=== PATIENT | female | born 1970 | race Caucasian/White ===

== ENCOUNTER 2021-10-31 14:15 | Outpatient (CLI) | payer OTHER, SELFPAY ==
[2021-10-31 14:38] LABS: Hematocrit 45.4 % (37.0-47.0); Hemoglobin 15.2 g/dL (12.0-15.0); Mean Corpuscular HGB Conc 33.5 g/dl (32-36); Mean Corpuscular Hemoglobin 28.6 pg (26-34); Mean Corpuscular Volume 85.5 fl (80-100); Mean Platelet Volume 9.3 fl (7.4-10.4); Platelet Count Result 274 k/mm3 (150-375); Red Blood Count 5.31 M/mm3 (4.2-5.4); White Blood Count 8.3 K/mm3 (4.5-10.0)
[2021-10-31 14:39] LABS: Appearance Urine Clear (Clear); Bilirubin Urine 1+ (Negative); Blood Urine Negative (Negative); Color Urine Yellow (Yellow); Glucose Urine UA Negative (Negative); Ketones Urine 2+ mg/dL (Negative); Leukocyte Esterase Ur Trace LEU/UL (NEGATIVE); Nitrate Urine Negative (Negative); Protein Urine Negative (Negative); Urobilinogen Urine 0.2 mg/dL (<2.0); pH Urine 5.5 (5.0-9.0)
[2021-10-31 14:45] LABS: Mucus Urine Few /lpf; RBC Urine 0-2 /hpf (0-2); Squamous Epithelial Cell Urine Moderate /hpf (Few)
[2021-10-31 14:50] LABS: Alanine Aminotransferase 17 U/L (4-35); Albumin Level 4.9 g/dL (3.5-5.1); Alkaline Phosphatase 67 U/L (38-126); Anion Gap 10 mmol/L (8-16); Aspartate Amino Transferase 25 U/L (14-36); Bilirubin,Total 0.5 mg/dL (0.2-1.3); Blood Urea Nitrogen 13 mg/dL (7-17); Calcium 9.4 mg/dL (8.4-10.2); Carbon Dioxide 22 mmol/L (22-30); Chloride 104 mmol/L (98-107); Cholesterol 240 mg/dL (0-200); Estimated Glomerular Filt Rate > 60; Glucose 96 mg/dL (65-110); HDL Direct 46 mg/dL; Potassium 4.1 mmol/L (3.4-5.0); Sodium 136 mmol/L (137-145); Triglycerides 72 mg/dL (<150)
[2021-10-31 14:59] LABS: Add Urine Microscopic? YES
[2021-10-31 15:03] LABS: LDL Cholesterol Direct 147 mg/dL
[2021-10-31 15:59] LABS: Folic Acid > 20.0 ng/mL (2.76->20)
== END 2021-10-31 14:16 | disposition home or self-care (01) ==
LOC: ANHLAB 14:17
PROVIDERS: PCP Family Medicine; Visit Provider Family Medicine
DX: Z00.00 Encounter for general adult medical examination without abnormal findings (principal); E53.8 Deficiency of other specified B group vitamins; I10 Essential (primary) hypertension
CPT/HCPCS: 36415; 80053; 80061; 81001; 82607; 82746; 84443; 85027

== ENCOUNTER 2022-02-15 08:22 | Outpatient (CLI) | payer OTHER, SELFPAY | END 2022-02-15 08:23 | disposition home or self-care (01) | LOC: ANHAUDIO 08:23 | PROVIDERS: PCP Family Medicine; Visit Provider Physician Assistant | DX: H93.A2 Pulsatile tinnitus, left ear (principal) | CPT/HCPCS: 92552; 92556; 92567 ==

== ENCOUNTER 2022-02-25 14:41 | Outpatient (CLI) | payer OTHER, SELFPAY | END 2022-02-25 14:42 | disposition home or self-care (01) | LOC: ANHLAB 14:45 | PROVIDERS: PCP Family Medicine | DX: H93.A2 Pulsatile tinnitus, left ear (principal) | CPT/HCPCS: 36415; 84443 ==

== ENCOUNTER 2022-04-16 13:00 | Outpatient (NON) | payer OTHER, SELFPAY | END 2022-04-16 13:01 | disposition home or self-care (01) | LOC: ANHLAB 04-19 07:55 | PROVIDERS: PCP Family Medicine; Visit Provider Nurse Practitioner | DX: R22.9 Localized swelling, mass and lump, unspecified (principal) | CPT/HCPCS: 88304 ==

== ENCOUNTER 2022-08-07 13:44 | Outpatient (CLI) | payer OTHER, SELFPAY | END 2022-08-07 13:45 | disposition home or self-care (01) | LOC: ANHAUDIO 13:45 | PROVIDERS: PCP Family Medicine | DX: H93.A2 Pulsatile tinnitus, left ear (principal) | CPT/HCPCS: 92557; 92567 ==

== ENCOUNTER 2022-09-28 08:39 | Emergency (ER) | payer OTHER, SELFPAY ==
[2022-09-28 08:51] VITALS: BP 148/68; PULSE 65; RESP 16; TEMP 36.4; O2SAT 100
--- NOTE | 2022-09-28 08:53 | ED.GENADULT ---
HPI - General Adult General Chief complaint: Upper Respiratory Infection Stated complaint: Sore Throat,Congestion,Cough Time Seen by Provider: 09/28/22 08:54 Source: patient Mode of arrival: ambulatory Limitations: no limitations History of Present Illness HPI narrative: Year old female patient presents to [facility]. She states she has been sick now for about a month. Patient states started off as congestion and a sore throat and has now progressed to a cough, she is coughing yellow sputum. Patient denies fevers, body aches or chills. Denies any chest pain or shortness of breath. Denies any abdominal pain, nausea, vomiting or diarrhea. Patient states she has been taking [id number] DayQuil, NyQuil, Mucinex, Benadryl and Afrin for her symptoms. Related Data Home Medications Medication Instructions Recorded Confirmed cyanocobalamin (vitamin B-12) 1,000 mcg PO DAILY 10/31/21 09/28/22 1,000 mcg capsule multivitamin 1 tablet PO DAILY 10/31/21 09/28/22 Allergies Allergy/AdvReac Type Severity Reaction Status Date / Time penicillin G Allergy Mild Rash Verified 09/28/22 08:59 Review of Systems Review of Systems: CONSTITUTIONAL: Denies fever, chills, or sweats. EYES: Denies visual changes, redness, or discharge. ENT: Positive rhinorrhea, positive congestion, sore throat, or otalgia. CARDIOVASCULAR: Denies chest pain, palpitations, or edema. RESPIRATORY: positive cough denies dyspnea. GASTROINTESTINAL: Denies abdominal pain, nausea, vomiting, or diarrhea. GENITOURINARY: Denies dysuria or hematuria. SKIN: Denies rash or itching. MUSCULOSKELETAL: Denies back pain, joint pain, or myalgia. NEUROLOGIC: Denies headache, numbness, or weakness. PSYCHIATRIC: Denies anxiety or depression. [facility] Past Medical History Medical History Cobalamin deficiency Overweight Pulsatile tinnitus of left ear Surgical History Surgical History H/O gastric sleeve History of delivery History of D&C History of hysterectomy with bilateral oophorectomy History of tonsillectomy and adenoidectomy Family History Family History Father Hypertension Malignant neoplasm of prostate Renal cancer Mother Diabetes mellitus Uterine cancer Social History Social History Smoking packs per day: 0 Smoking cigarettes per day: 0.0 Years smoked: 0 Smoking pack-years: 0.00 Smoking status: Never smoker Second hand tobacco smoke exposure: No Alcohol intake: never Substance use: never Substance use type: does not use Living arrangements: with family Occupation/Education: occupation Gender identity (if verbalized by the patient): Female Sexual Orientation (if Verbalized by the Patient): Straight or Heterosexual Comments At the time of my signature I agree with nursing past medical history, surgical, social, and family history. There is no relevant family history pertinent to the presenting complaint. Exam Narrative: GENERAL: Well-appearing, well-nourished, and in no acute distress. HEAD: Normocephalic, atraumatic. EYES: PERRLA and EOMI. ENT: Nares with erythema edema noted bilaterally, no rhinorrhea or epistaxis. Mucous membranes moist. posterior pharynx with no erythema, tonsillar enlargement, exudates or lesions present. Bilateral TMs are clear no erythema or foreign bodies the canal. NECK: Supple. No lymphadenopathy CHEST: Clear to auscultation. No respiratory distress. Patient able To talk in clear complete sentences. No tripoding noted. HEART: Regular rate and rhythm. No murmur heard. Normal peripheral pulses. ABDOMEN: Soft, nontender, nondistended, normal active bowel sounds. EXTREMITIES: Normal range of motion. No edema. SKIN: Warm, dry, no rash. NEURO: No focal deficits. Alert and
== END 2022-09-28 09:05 | disposition home or self-care (01) ==
PROVIDERS: Emergency Provider Nurse Practitioner Family; PCP Family Medicine
DX: B34.9 Viral infection, unspecified (principal); J32.9 Chronic sinusitis, unspecified
CPT/HCPCS: 99213; G0463

== ENCOUNTER 2022-11-01 09:17 | Outpatient (CLI) | payer OTHER, SELFPAY ==
[2022-11-01 09:31] LABS: Hemoglobin 14.6 g/dL (12.0-15.0); Mean Corpuscular HGB Conc 33.2 g/dl (32-36); Mean Corpuscular Hemoglobin 28.9 pg (26-34); Mean Platelet Volume 9.1 fl (7.4-10.4); Platelet Count Result 263 k/mm3 (150-375); Red Blood Count 5.06 M/mm3 (4.2-5.4); Red Cell Distribution Width 13.2 % (11.5-14.5); White Blood Count 5.8 K/mm3 (4.5-10.0)
[2022-11-01 09:46] LABS: Alanine Aminotransferase 22 U/L (6-35); Albumin Level 4.4 g/dL (3.5-5.1); Alkaline Phosphatase 61 U/L (38-126); Anion Gap 7 mmol/L (8-16); Aspartate Amino Transferase 25 U/L (14-36); Bilirubin,Total 0.5 mg/dL (0.2-1.3); Blood Urea Nitrogen 19 mg/dL (7-17); Calcium 9.1 mg/dL (8.4-10.2); Carbon Dioxide 25 mmol/L (22-30); Chloride 106 mmol/L (98-107); Cholesterol 217 mg/dL (0-200); Estimated Glomerular Filt Rate > 60; Glucose 101 mg/dL (65-110); HDL Direct 44 mg/dL; Potassium 4.4 mmol/L (3.4-5.0); Sodium 138 mmol/L (137-145); Triglycerides 66 mg/dL (<150)
[2022-11-01 09:58] LABS: LDL Cholesterol Direct 135 mg/dL
== END 2022-11-01 09:18 | disposition home or self-care (01) ==
PROVIDERS: PCP Family Medicine; Visit Provider Family Medicine
DX: E66.3 Overweight (principal); E78.5 Hyperlipidemia, unspecified; Z79.899 Other long term (current) drug therapy
CPT/HCPCS: 36415; 80053; 80061; 84443; 85027

== ENCOUNTER 2022-11-26 14:18 | Outpatient (RCR) | payer OTHER, SELFPAY ==
[2022-11-26 14:21] VITALS: BMI 31.0
== END 2023-02-17 10:42 | disposition home or self-care (01) ==
LOC: ANHDMC 14:18
PROVIDERS: PCP Family Medicine; Visit Provider Family Medicine
DX: E66.9 Obesity, unspecified (principal); Z90.3 Acquired absence of stomach [part of]; Z71.3 Dietary counseling and surveillance
CPT/HCPCS: 97802

== ENCOUNTER 2023-04-04 09:46 | Outpatient (CLI) | payer OTHER, SELFPAY ==
[2023-04-04 17:01] LABS: Alanine Aminotransferase 20 U/L (6-35); Albumin Level 4.5 g/dL (3.5-5.1); Alkaline Phosphatase 67 U/L (38-126); Anion Gap 7 mmol/L (8-16); Aspartate Amino Transferase 34 U/L (14-36); Bilirubin,Total 0.6 mg/dL (0.2-1.3); Blood Urea Nitrogen 20 mg/dL (7-17); Calcium 9.3 mg/dL (8.4-10.2); Carbon Dioxide 27 mmol/L (22-30); Chloride 105 mmol/L (98-107); Cholesterol 180 mg/dL (0-200); Estimated Glomerular Filt Rate > 60; Glucose 99 mg/dL (65-110); HDL Direct 43 mg/dL; Hematocrit 45.2 % (37.0-47.0); Hemoglobin 14.9 g/dL (12.0-15.0); Mean Corpuscular Hemoglobin 28.4 pg (26-34); Mean Corpuscular Volume 86.3 fl (80-100); Mean Platelet Volume 9.8 fl (7.4-10.4); Platelet Count Result 261 k/mm3 (150-375); Potassium 4.2 mmol/L (3.4-5.0); Red Blood Count 5.24 M/mm3 (4.2-5.4); Red Cell Distribution Width 12.6 % (11.5-14.5); Sodium 139 mmol/L (137-145); Triglycerides 86 mg/dL (<150); White Blood Count 6.1 K/mm3 (4.5-10.0)
[2023-04-04 17:18] LABS: LDL Cholesterol Direct 107 mg/dL
== END 2023-04-04 09:47 | disposition home or self-care (01) ==
LOC: ANHGOSHLAB 09:47
PROVIDERS: PCP Family Medicine; Visit Provider Family Medicine
DX: E66.9 Obesity, unspecified (principal); E78.5 Hyperlipidemia, unspecified; Z79.899 Other long term (current) drug therapy
CPT/HCPCS: 36415; 80053; 80061; 84443; 85027

== ENCOUNTER 2023-09-15 14:51 | Outpatient (CLI) | payer OTHER, SELFPAY ==
[2023-09-15 20:16] LABS: Alanine Aminotransferase 19 U/L (6-35); Albumin Level 4.2 g/dL (3.5-5.1); Alkaline Phosphatase 67 U/L (38-126); Anion Gap 9 mmol/L (8-16); Aspartate Amino Transferase 41 U/L (14-36); Bilirubin,Total 0.5 mg/dL (0.2-1.3); Blood Urea Nitrogen 13 mg/dL (7-17); Calcium 9.4 mg/dL (8.4-10.2); Carbon Dioxide 24 mmol/L (22-30); Chloride 105 mmol/L (98-107); Cholesterol 161 mg/dL (0-200); Estimated Glomerular Filt Rate > 60; Glucose 87 mg/dL (65-110); HDL Direct 38 mg/dL; Potassium 3.8 mmol/L (3.4-5.0); Sodium 138 mmol/L (137-145); Triglycerides 109 mg/dL (<150)
[2023-09-15 20:27] LABS: LDL Cholesterol Direct 108 mg/dL
== END 2023-09-15 14:52 | disposition home or self-care (01) ==
PROVIDERS: PCP Family Medicine; Visit Provider Family Medicine
DX: E66.9 Obesity, unspecified (principal); E78.5 Hyperlipidemia, unspecified; Z79.899 Other long term (current) drug therapy
CPT/HCPCS: 36415; 80053; 80061

== ENCOUNTER 2023-09-19 09:33 | Outpatient (CLI) | payer OTHER, SELFPAY ==
--- NOTE | ~2023-09-19 | XR_ITS ---
Lumbosacral Spine: AP, oblique, and lateral views Clinical History: Pain Findings: The normal lordotic curve is maintained. The vertebral bodies and posterior elements are i ntact. The intervertebral disc spaces are preserved. Mild to moderate facet arthropathy present thro ughout the lumbar spine. The sacroiliac joints are normally outlined. Impression: Extensive facet arthropathy, as above. Reviewed, dictated and finalized at location M. NG PICKLING PACKER Impression: Extensive facet arthropathy, as above.
--- NOTE | ~2023-09-19 | US_ITS ---
EXAMINATION: US soft tissue abdomen DATE: 09/19/2023 09:45 INDICATION: Right lower quadrant abdominal lump. TECHNIQUE: Multiple grayscale and Doppler ultrasound images of the abdomen were obtained. COMPARISON: None FINDINGS: In the right lower quadrant of the abdomen, there is a 1.7 cm mildly hyperechoic ill-define d subcutaneous mass. IMPRESSION: 1. Ill-defined 1.7 cm mildly hyperechoic subcutaneous mass in right lower quadrant, likely inflammati on. Reviewed, dictated and finalized at location E. ESTATE ECONOMIST IMPRESSION: 1. Ill-defined 1.7 cm mildly hyperechoic subcutaneous mass in right lower quadr ant, likely inflammation.
== END 2023-09-19 09:34 ==
PROVIDERS: PCP Family Medicine; Visit Provider Family Medicine
DX: M54.50 Low back pain, unspecified (principal); R19.03 Right lower quadrant abdominal swelling, mass and lump; M12.88 Other specific arthropathies, not elsewhere classified, other specified site
CPT/HCPCS: 72110; 76705

== ENCOUNTER 2023-10-31 10:15 | Outpatient (RCR) | payer OTHER, SELFPAY ==
--- NOTE | 2023-10-03 12:25 | PTOPEVAL1 ---
Assessment and note entered by Surinder Victoria, PT Evaluation Information Assessment Status Evaluation Diagnosis Sciatic nerve lesion, Low back pain Onset 2019 Subjective Information Reports that she is having R side piriformis and left low back. Pain never radiates down the leg but occasionally radiates up from the glute to the low back. She is R handed. Works as a speech therapist in early intervention. Spends a lot of time on the floor with children in awkward positions. She has been using a wheelchair cushion to help sit on the ground. Denies falls of acute onset weakness. Does feel weak overall as she does not currently do a lot of exercise. She feels worse going to bed at night than getting up in the morning. Reported Pain Level Pain Score 6: Self Report Assessment PT Clinical Summary Patient presents with difficulty disassociating hip motion from lumbar motion. Poor core strength and poor lateral hip stability. Patient will benefit from skilled therapy to address hip and core weakness and progress as tolerated with functional activity. Plan of Care Interventions Check Out for Orthotic/Pr,Hot Pack/Cold Pack, Manual Therapy,Neuro Re-education,Therapeutic Activities,Therapeutic Exercise PT Services Indicated Yes Treatment Frequency and 2x/week for 8 visits Duration These treatments will address the objective and functional deficits as defined above. The patient will be advanced safely and appropriately in order for the patient to progress towards his/her prior level of function. Additional exercises will be introduced and as well as a comprehensive home exercise program upon discharge, if needed, ?to ensure carryover of functional gains achieved in the clinic. This treatment plan has been reviewed and agreement upon by the patient.
--- NOTE | 2023-10-03 12:25 | OPREHPOC ---
Outpatient Therapy Plan of Care This is a Multidisciplinary Plan of Care that may contain components documented by all disciplines (PT, OT, and ST.) PT Problem 1 PT Problem #1 Knowledge Deficit PT Goal 1 Goal Independent with HEP Target Visit 4 Progress Met PT Problem 2 PT Problem #2 Pain PT Goal 1 Goal Report no pain with supine positioning at night for improved quality of life Target Visit 8 PT Problem 3 PT Problem #3 Impaired Strength PT Goal 1 Goal Demonstrate minimal to no restriction in piriformis to reduce piriformis syndrome Target Visit 8 PT Goal 1 Goal Improve brigida hip abduction strength to 4+/5 to improve lateral stability Target Visit 8 Progress Met PT Goal 2 Goal Improve lower abdominal strength to 4/5 to improve core activation for hip disassociation Target Visit 8
--- NOTE | 2023-10-31 11:24 | OPREHPOC ---
Outpatient Therapy Plan of Care This is a Multidisciplinary Plan of Care that may contain components documented by all disciplines (PT, OT, and ST.) PT Problem 1 PT Problem #1 Knowledge Deficit PT Goal 1 Goal Independent with HEP Target Visit 4 Progress Met PT Problem 2 PT Problem #2 Pain PT Goal 1 Goal Report no pain with supine positioning at night for improved quality of life Target Visit 8 Progress Met PT Problem 3 PT Problem #3 Impaired Strength PT Goal 1 Goal Demonstrate minimal to no restriction in piriformis to reduce piriformis syndrome Target Visit 8 Progress Met PT Goal 1 Goal Improve brigida hip abduction strength to 4+/5 to improve lateral stability Target Visit 8 Progress Met PT Goal 2 Goal Improve lower abdominal strength to 4/5 to improve core activation for hip disassociation Target Visit 8 Progress Met
--- NOTE | 2023-10-31 11:24 | PTOPDC ---
Assessment and note entered by Surinder Victoria, PT Evaluation Information Assessment Status Discharge Diagnosis Sciatic nerve lesion, Low back pain Onset 2018 Subjective Information Reports that she feels she is doing significantly better overall. She still has pain based on position and activity. She reports that she feels comfortable with exercises and with her work activity she is limited to her available timing for therapy. Would like to be discharged at this time. Reported Pain Level Pain Score 1: Self Report Assessment PT Clinical Summary Patient has made excellent progress in hip mobility and strength at this time. She demonstrates understanding of HEP and needs for continued progress to address. No concerns at this time for discharge. Plan of Care PT Services Indicated D/C to HEP
== END 2023-10-31 14:02 | disposition home or self-care (01) ==
LOC: ANHGOSHPT 10:15
PROVIDERS: PCP Family Medicine; Visit Provider Family Medicine
DX: M54.50 Low back pain, unspecified (principal); G57.00 Lesion of sciatic nerve, unspecified lower limb
CPT/HCPCS: 97110; 97112; 97161; 97530

== ENCOUNTER 2024-02-20 08:20 | Outpatient (CLI) | payer OTHER, SELFPAY ==
[2024-02-20 13:46] LABS: Hematocrit 45.4 % (37.0-47.0); Hemoglobin 14.9 g/dL (12.0-15.0); Mean Corpuscular HGB Conc 32.8 g/dl (32-36); Mean Corpuscular Hemoglobin 29.1 pg (26-34); Mean Corpuscular Volume 88.7 fl (80-100); Mean Platelet Volume 10.1 fl (7.4-10.4); Platelet Count Result 245 k/mm3 (150-375); Red Blood Count 5.12 M/mm3 (4.2-5.4); Red Cell Distribution Width 13.1 % (11.5-14.5); White Blood Count 8.2 K/mm3 (4.5-10.0)
[2024-02-20 14:42] LABS: Alanine Aminotransferase 16 U/L (6-35); Albumin Level 4.1 g/dL (3.5-5.1); Alkaline Phosphatase 64 U/L (38-126); Anion Gap 9 mmol/L (4-12); Aspartate Amino Transferase 49 U/L (14-36); Bilirubin,Total 0.6 mg/dL (0.2-1.3); Blood Urea Nitrogen 18 mg/dL (7-17); Calcium 9.4 mg/dL (8.4-10.2); Carbon Dioxide 25 mmol/L (22-30); Chloride 104 mmol/L (98-107); Cholesterol 156 mg/dL (0-200); Estimated Glomerular Filt Rate > 60; Glucose 101 mg/dL (65-110); HDL Direct 42 mg/dL; Potassium 3.9 mmol/L (3.4-5.0); Sodium 138 mmol/L (137-145); Triglycerides 67 mg/dL (<150)
[2024-02-20 14:53] LABS: LDL Cholesterol Direct 94 mg/dL
[2024-02-20 15:08] LABS: Thyroid Stimulating Hormone 0.696 uIU/mL (0.465-4.680)
== END 2024-02-20 08:21 | disposition home or self-care (01) ==
LOC: ANHGOSHLAB 08:21
PROVIDERS: PCP Family Medicine; Visit Provider Family Medicine
DX: E78.5 Hyperlipidemia, unspecified (principal); E66.9 Obesity, unspecified; Z79.899 Other long term (current) drug therapy
CPT/HCPCS: 36415; 80053; 80061; 84443; 85027

== ENCOUNTER 2024-09-11 08:23 | Outpatient (CLI) | payer OTHER, SELFPAY ==
[2024-09-11 08:48] LABS: Hematocrit 46.2 % (37.0-47.0); Hemoglobin 15.3 g/dL (12.0-15.0); Mean Corpuscular HGB Conc 33.1 g/dl (32-36); Mean Corpuscular Hemoglobin 28.6 pg (26-34); Mean Corpuscular Volume 86.4 fl (80-100); Mean Platelet Volume 9.6 fl (7.4-10.4); Platelet Count Result 306 k/mm3 (150-375); Red Blood Count 5.35 M/mm3 (4.2-5.4); Red Cell Distribution Width 13.1 % (11.5-14.5); White Blood Count 8.7 K/mm3 (4.5-10.0)
[2024-09-11 08:49] LABS: Alanine Aminotransferase 18 U/L (6-35); Albumin Level 4.3 g/dL (3.5-5.1); Alkaline Phosphatase 67 U/L (38-126); Anion Gap 11 mmol/L (4-12); Aspartate Amino Transferase 23 U/L (14-36); Bilirubin,Total 0.7 mg/dL (0.2-1.3); Blood Urea Nitrogen 19 mg/dL (7-17); Calcium 9.5 mg/dL (8.4-10.2); Carbon Dioxide 22 mmol/L (22-30); Chloride 105 mmol/L (98-107); Cholesterol 175 mg/dL (0-200); Estimated Glomerular Filt Rate > 60; Glucose 90 mg/dL (65-110); HDL Direct 40 mg/dL; Potassium 4.4 mmol/L (3.4-5.0); Sodium 138 mmol/L (137-145); Triglycerides 68 mg/dL (<150)
[2024-09-11 09:00] LABS: LDL Cholesterol Direct 104 mg/dL
[2024-09-11 09:19] LABS: Thyroid Stimulating Hormone 0.838 uIU/mL (0.465-4.680)
== END 2024-09-11 08:24 | disposition home or self-care (01) ==
LOC: ANHLAB 08:25
PROVIDERS: PCP Family Medicine; Visit Provider Family Medicine
DX: E78.5 Hyperlipidemia, unspecified (principal); E66.9 Obesity, unspecified; Z79.899 Other long term (current) drug therapy
CPT/HCPCS: 36415; 80053; 80061; 84443; 85027

== ENCOUNTER 2025-02-11 14:11 | Outpatient (CLI) | payer OTHER, SELFPAY ==
--- OUTSIDE RECORDS SUMMARY | 2025-02-11 14:14 | XMS_ITS | Clinical Summary ---
Author Organization [facility] Address [address] [place] [address] Phone Care Team Providers Care Flame Planer Name Role Phone Unavailable Primary Care Provider Unavailabl e Allergies Active Allergy Reactions Criticality Noted Date Comments Butorphanol Tartrate Other (See Comments) Medium 01/02 Extremely slow to wear off. Pt states knocked out for several hours. told her to never take again. Penicillins Rash Low 06/06/2009 Medications aspirin (ECOTRIN EC) 81 mg Tablet, Delayed Release (E.C.) Take 81 mg by mouth daily. Active amLODIPine (NORVASC) 10 mg tablet Take 5 mg by mouth daily . Active HYDROcodone-acet aminophen (HYCET) 7.5-325 mg/15 mL Solution Take 15 mL by mouth. EVERY 6 HOURS NEEDED FOR PAIN 360 mL 02/18/2017 2:06 PM CDT 02/17/2017 Active metoprolol tartrate (LOPRESSOR) 50 mg tabletIndication s:hypertension Take 1 Tablet (50 mg) by mouth 2 times daily. 60 Tablet 02/18/2017 2:06 PM CDT 02/18/2017 Active ondansetron (ZOFRAN ODT) 4 mg Tablet, Rapid Dissolve Place 1 Tablet (4 mg) under tongue every 6 hours as needed for Nausea/Emes is (NAUSEA). 10 Tablet 02/18/2017 2:06 PM CDT 02/18/2017 Active Active Problems Patient Care Coordination No te Formatting of this note migh t be different from the original. Primary Care: Leticia Gomez MD Referring Provider: Lauren Christine [facility] [address] [place] [address] Other: Problem Noted Date Diagnosed Date Post-operative nausea and vomiting 02/18/2017 Post-op pain 02/18/2017 HTN (hypertension), benign 02/17/2017 Encounter for general adult medical examination with abnormal findings 02/17/2017 Abnormal mammogram, unspecified 06/06/2009 Depression Encounters Date Type Department Care Team Description 01/26/2025 External Device Data [facility] ABSTRACTION Provider, Abstract 01/25/2025 External Device Data [facility] ABSTRACTION Provider, Abstract 12/28/2024 External Device Data [facility] ABSTRACTION Provider, Abstract 12/02/2024 External Device Data [facility] ABSTRACTION Provider, Abstract 12/01/2024 External Device Data [facility] ABSTRACTION Provider, Abstract 11/30/2024 External Device Data [facility] ABSTRACTION Provider, Abstract 11/16/2024 External Device Data [facility] ABSTRACTION Provider, Abstract from Last 3 Months Family History Medical History Relation Name Comments Cancer Father prostate Prostate Cancer Father Diabetes Maternal Aunt Heart Disease Maternal Grandfather Ovarian Cancer Maternal Grandmother Diabetes Mother Cancer Other PGF prostate Breast Cancer Paternal Grandmother age 55 Relation Name Status Comments Father Maternal Aunt Maternal Grandfather Maternal Grandmother Mother Other PGF Alive Paternal Grandmother Social History Tobacco Use Types Packs/Day Years Used Date Smoking Tobacco: Former Cigarettes Q uit: 01/03/1992 Smokeless Tobacco: Never Comments:25 yrs Alcohol Use Standard Drinks/Week Comments Yes 0 (1 standard drink = 0.6 oz pur e alcohol) rarely Comments No Sex and Gender Information Value Date Recorded Sex Assigned at Female 06/19/2024 4:03 PM DISTRIBUTION CLERK Legal Sex Female 5:03 AM DISTRIBUTION CLERK Gender Identity Not on file Sexual Orientation Not on file Occupation Industry Job Start Date Job End Date Not on file Not on file Not on file Not on file Last Filed Vital Signs Vital Sign Reading Time Taken Comments Blood Pressure 128/63 02/18/2017 12:15 PM CDT Pulse 62 02/18/2017 12:15 PM CDT Temperature 36.4 C (97.5 F) 02/18/2017 4:15 AM CDT Respiratory Rate 16 02/18/2017 12:1 5 PM CDT Oxygen Saturation 100% 02/18/2017 12: 15 PM CDT Inhaled Oxygen Concentration - - Weight 134.8 kg (297 lb 3.2 oz) 02/18/2017 4:15 AM CDT Height 167.6 cm (5' 6) 02/17/2017 10:4 5 AM CDT Body Mass Index 47.97 02/17/2017 10:45 AM CDT Plan of Treatment Health Maintenance Due Date Last Done Comments DTAP/TDAP/TD VACCINES (1 - Tdap) 1987 HEPATITIS B VACCINES (1 of 3 - 19+ 3-dose series) 1987 COLORECTAL SCREENING 2013 Colorectal Cancer Screening 2013 FIT-DNA Q 3 years 2013 FIT/FOBT Q 1 year 2013 Flex Sig/CT Colonography Q 5 years 2013 ZOSTER VACCINE (1 of 2) 2018 COVID-19 Vaccine (2 - 2023-2 5 season) 2024 08/08/2022 INFLUENZA VACCINE (#1) 2025 05/30/2023, 2022 BREAST CANCER SCREENING 06/26/2025 06/26/20 24, 05/12/2023, 06/01/2022, Additional history exists Medical Devices Implanted Type Area Area Director Device Identifier Shelf Expiration Date Model / Serial / Lot Seamguard Endogia 60 Blck [id number] - [id number] Implanted:Qty : 2 on 02/17/2017 by Jimy Blandon MD at [facility] N/A: Stomach [employer] 11/11/2019 [id number] / / [id number] Seamguard Endogia 60 Prpl [id number] - [id number] Implanted:Qty : 2 on 02/17/2017 by Jimy Blandon MD at [facility] [employer] N/A: Stomach [employer] 10/12/2019 [id number] / / [id number] Procedures Procedure Name Priority Date/Time Associated Diagnosis Comments MAMMO 3D HARIKA SCREEN BILAT W OR WO CAD Routine 06/26/2024 9:49 AM DISTRIBUTION CLERK Visit for screening mammogram from Last 3 Months or Most Recently Relevant to Health Maintenance Results * MAMMO 3D HARIKA SCREEN BILAT W OR WO CAD (06/26/2024 9:49 AM DISTRIBUTION CLERK) Anatomical Region Laterality Modality Breast Bilateral Mammography 06/26/2024 9:49 AM DISTRIBUTION CLERK Impressions 06/27/2024 8:54 AM DISTRIBUTION CLERK IMPRESSION: No mammographic evidence of malignancy. RECOMMENDATIONS: Routine screening mammogram in one year. DICTATION LOCATION: [facility] Narrative 06/27/2024 8:54 AM DISTRIBUTION CLERK BILATERAL FULL-FIELD DIGITAL SCREENING MAMMOGRAM WITH CAD WITH 3D TOMOSYNTHESIS DATE: 06/26/2024 9:49 AM HISTORY: Routine screening. TECHNIQUE: Full-field digital craniocaudal and mediolateral oblique projections of both breasts were obtained. Low-dose full-field digital breast tomosynthesis examination was performed with 2D and 3D acquisitions. Examination is read in conjunction with computer aided detection. COMPARISON: November 2018 through April 2023 BREAST COMPOSITION: There are scattered areas of fibroglandular density FINDINGS: No suspicious mass, suspicious microcalcifications, or architectural distortion in either breast is identified. Since the prior study, there has been no significant interval change. The computer aided diagnosis detects no significant abnormality. OVERALL FINAL ASSESSMENT: BI-RADS CATEGORY 1 - Negative Procedure Note Teo Sam MD - 06/27/2024 BILATERAL FULL-FIELD DIGITAL SCREENING MAMMOGRAM WITH CAD WITH 3D TOMOSYNTHESIS DATE: 06/26/2024 9:49 AM HISTORY: Routine screening. TECHNIQUE: Full-field digital craniocaudal and mediolateral oblique projections of both breasts were obtained. Low-dose full-field digital breast tomosynthesis examination was performed with 2D and 3D acquisitions. Examination is read in conjunction with computer aided detection. COMPARISON: November 2018 through April 2023 BREAST COMPOSITION: There are scattered areas of fibroglandular density FINDINGS: No suspicious mass, suspicious microcalcifications, or architectural distortion in either breast is identified. Since the prior study, there has been no significant interval change. The computer aided diagnosis detects no significant abnormality. OVERALL FINAL ASSESSMENT: BI-RADS CATEGORY 1 - Negative IMPRESSION: No mammographic evidence of malignancy. RECOMMENDATIONS: Routine screening mammogram in one year. DICTATION LOCATION: [facility] Lauren Simmons MD MAMMO ORDERABLES Final Resu lt from Last 3 Months or Most Recently Relevant to Health Maintenance Insurance [employer] (INTERNAL) [facility] [employer] [facility] CHOICE [id number] Advance Directives For more information, please contact: [phone] * Full Code (Latest Code Status on File) Date Activated Date Inactivated Comments 02/17/2017 10:38 AM 02/18/2017 3:53 PM * Full Code Date Activated Date Inactivated Comments 02/17/2017 6:38 AM 02/17/2017 10:38 AM * Full Code Date Activated Date Inactivated Comments 01/03/2017 9:44 AM 01/03/2017 12:59 PM
--- OUTSIDE RECORDS SUMMARY | 2025-02-11 14:14 | XMS_ITS | Encounter Summary ---
Author Organization [facility] Address [address] [place] [address] Care Team Providers Care Music Composer Name Role Phone Leticia Gomez MD Primary Care Provider [phone] Encounter Details Date Type Department Care Team (Late st Contact Info) Description 01/16/2017 Abstract [facility] [address] [address] [place] [address] Jimy Blandon MD [address] [place], [place] [id number] Social History Tobacco Use Types Packs/Day Years Used Date Smoking Tobacco: Former Cigarettes Q uit: 01/03/1992 Comments:25 yrs Alcohol Use Standard Drinks/Week Comments Yes 0 (1 standard drink = 0.6 oz pur e alcohol) rarely Comments No Sex and Gender Information Value Date Recorded Sex Assigned at Female 06/19/2024 4:03 PM CELLULAR EQUIPMENT REPAIRER Legal Sex Female 5:03 AM CELLULAR EQUIPMENT REPAIRER Gender Identity Not on file Sexual Orientation Not on file Occupation Industry Job Start Date Job End Date Not on file Not on file Not on file Not on file documented as of this encounter Plan of Treatment Not on file documented as of this encounter Visit Diagnoses Not on filedocumented in this encounter Care Teams Music Composer Relationship Specialty Start Date End Date Leticia Gomez MD PCP - General 06/06/09 05/26/22 documented as of this encounter
--- OUTSIDE RECORDS SUMMARY | 2025-02-11 14:14 | XMS_ITS | Clinical Summary ---
Author Organization [facility] [employer] Address [address] [place] [address] Care Team Providers Care Web Developer Name Role Phone Unavailable Primary Care Provider Unavailabl e Source Comments [facility],non-owned Affiliates and Associated Physician Practices is amultiple site organization consisting of ambulatory clinics and hospital sitesin [place], [place], [place] and [place]. This disclosure is being madepursuant to the Care Everywhere program and may not contain all information available regarding this patient. Last updated 18.[facility] [employer] Allergies Active Allergy Reactions Criticality Noted Date Comments Penicillins Urticaria Medium 03/13/2017 Butorphanol 03/14/2017 Medications * Be aware that medications may not be up to date on this document. Alwaysverify current medications with the patient. Fluticasone Propionate (FLONASE NA) [place] into the nose once daily Active multivitamin daily (THERAGRAN) tablet Take 1 (one) tablet by mouth 2 times daily Active Cyanocobalamin (VITAMIN B-12) 500 MCG Dissolve 1,000 mcg under the tongue once daily Active calcium citrate-vitamin D 500-500 MG-UNIT chew Take 1 (one) tablet by mouth 3 times daily Active simvastatin (Zocor) 5 MG tablet Take 1 (one) tablet by mouth once daily 05/24/2023 Active cetirizine (ZyrTEC ALLERGY) 10 MG gel capsule 09/28/2022 Active MAGNESIUM PO Active Active Problems Problem Noted Date Diagnosed Date Tinnitus 11/14/2021 Status post laparoscopic hysterectomy 04/25/2017 History of sleeve gastrectomy 02/17/2017 Resolved Problems Problem Noted Date Diagnosed Date Resolved Date DUB (dysfunctional uterine bleeding) 04/25/2017 06/09/2018 Hypertension 11/14/2021 Immunizations Immunization Administration Dates Next Due FREDIS PFIZER BIVALENT 12Y+ 30mcg/0.3ML INFLUENZA VACCINE, QUADR. (F LUZONE; FLULAVAL; FLUARIX; AFLURIA QUADRIVALENT; 6MO+), 0.5 ML (IIV4) 05/30/2023,08/08/2022 Family History Medical History Relation Name Comments Cancer - Prostate Father Cancer - Renal Father Hypertension Father CAD (Coronary Artery Disease) Maternal Grandfather Diabetes - Type 2 Maternal Grandfather Cancer - Ovarian Maternal Grandmother Cancer - Uterine Mother Diabetes - Type 2 Mother Cancer - Prostate Paternal Grandfather Cancer - Breast Paternal Grandmother Relation Name Status Comments Father Alive Maternal Grandfather Maternal Grandmother Mother Alive Paternal Grandfather Paternal Grandmother Social History Tobacco Use Types Packs/Day Years Used Date Smoking Tobacco: Never Smokeless Tobacco: Never Tobacco Cessation:Counseling Given: Not Answered Alcohol Use Standard Drinks/Week Comments No 0 (1 standard drink = 0.6 oz pur e alcohol) PHQ-2 Answer Date Recorded Patient Health Questionnaire-2 Score 0 05/23/2023 Comments No Sex and Gender Information Value Date Recorded Sex Assigned at Female 10/05/2021 3:08 PM CDT Legal Sex Female 8:50 AM CDT Gender Identity Female 10/05/2021 3:08 PM CDT Sexual Orientation Straight 10/05/2021 3: 08 PM CDT Last Filed Vital Signs Vital Sign Reading Time Taken Comments Blood Pressure 122/82 05/30/2023 3:01 PM CENTREX RADIO OPERATOR Pulse 70 05/30/2023 3:01 PM CENTREX RADIO OPERATOR Temperature 36.8 C (98.2 F) 04/26/2017 7:33 AM CDT Respiratory Rate 18 04/26/2017 7:33 AM CDT Oxygen Saturation 97% 04/26/2017 7:33 AM CDT Inhaled Oxygen Concentration - - Weight 88.5 kg (195 lb) 05/30/2023 3:01 PM CENTREX RADIO OPERATOR Height 167.6 cm (5' 6) 05/30/2023 3:01 PM CENTREX RADIO OPERATOR Body Mass Index 31.47 05/30/2023 3:01 PM CENTREX RADIO OPERATOR Plan of Treatment Health Maintenance Due Date Last Done Comments COLOGUARD (AGES 45-75) - COLON CA SCREENING 1968 CT COLONOGRAPHY - COLON CA SCREENING 1968 FIT - COLON CA SCREENING 1968 FLEX SIG - COLON CA SCREENING 1968 HIV SCREENING 1983 HEPATITIS C SCREENING 05/18/1986 DTAP/TDAP/TD VACCINES (1 - Tdap) 1987 HEPATITIS B VACCINE (1 of 3 - 19+ 3-dose series) 1987 PNEUMOCOCCAL VACCINE 50+ (1 of 1 - PCV) 2018 ZOSTER VACCINE (1 of 2) 2018 SCREENING FOR DIABETES 05/30/2023 7, 04/25/2017, 04/18/2017, Additional history exists COVID-19 VACCINE ( season) 2024 08/08/2022, 06/10/2021, 09/19/2020 DEPRESSION SCREENING 07/14/2024 05/30/2023, 11/08/19 22 INFLUENZA VACCINE (#1) 2025 05/30/2023, 2022 MAMMOGRAM 06/26/2026 06/26/2024, 04/15, 05/12/2023, Additional history exists COLON MONITORING 07/24/2028 07/24/2018 COLONOSCOPY - COLON CA SCREENING 07/24/2028 07/24/2018, 07/24/2018 (Done Outside Per Patient) Colorectal Cancer Screening 07/24/2028 PAP with HPV Discontinued 03/13/2017 HIB VACCINE Aged Out No longer eligi ble based on patient's age to complete this topic HPV VACCINE Aged Out No longer eligi ble based on patient's age to complete this topic MENINGOCOCCAL (Group B) VACCINE SHARED DECISION-MAKING Aged Out No longer eligible based on patient's age to complete this topic MENINGOCOCCAL GROUPS A/C/Y/W VACCINE Aged Out No longer eligible based on patient's age to complete this topic Procedures Procedure Name Priority Date/Time Associated Diagnosis Comments MAMMOGRAM 06/26/2024 BASIC METABOLIC PANEL (CALCIUM TOTAL) AM Draw 04/26/2017 3:58 AM CDT Status post laparoscopic hysterectomy PAP IG LB+HPV APTIMA Routine 03/13/2017 5:59 PM CDT Well woman exam from Last 3 Months or Most Recently Relevant to Health Maintenance Results * MAMMOGRAM (06/26/2024) Anatomical Region Laterality Modality Other 06/26/2024 Narrative 06/26/2024 Ordered by an unspecified provider. us Scanned Document SCANNING ONLY Final Result * (ABNORMAL) BASIC METABOLIC PANEL (CALCIUM TOTAL) (04/26/2017 3:58 AM CDT) Glucose 142(H) 74 - 106 mg/dL 04/26/2017 4:52 AM CDT [facility] Sodium 142 136 - 145 mmol/L 04/26/2017 4:52 AM CDT [facility] Potassium 4.2 3.5 - 5.1 mmol/L 04/26/2017 4:52 AM CDT [facility] Chloride 110(H) 98 - 107 mmol/L 04/26/2017 4:52 AM CDT [facility] CO2 24 22 - 31 mmol/L 04/26/2017 4:52 AM CDT [facility] Calcium 9.1 8.5 - 10.1 mg/dL 04/26/2017 4:52 AM CDT [facility] Anion Gap 8 8 - 16 mmol/L 04/26/2017 4:52 AM CDT [facility] BUN 5(L) 7 - 21 mg/dL 04/26/2017 4:52 AM CDT [facility] Creatinine 0.62 0.50 - 1.30 mg/dL 04/26/2017 4:52 AM CDT [facility] eGFR by MDRD >60 >60 mL/min/1.7 3m2 04/26/2017 4:52 AM CDT [facility] eGFR by MDRD >60 >60 mL/min/1.7 3m2 04/26/2017 4:52 AM CDT [facility] Blood BLOOD SPECIMEN / Unknown Venipuncture / Unknown 04/26/2017 3:58 AM CDT 04/26/2017 4:28 AM CDT us Lauren Simmons MD LAB - CHEMISTRY ORDERABLES Final Result [facility] [address] [place] [address] * PAP IG LB+HPV APTIMA (03/13/2017 5:59 PM CDT) Diagnosis [facility] ACCOUNT BILL Comment: NEGATIVE FOR INTRAEPITHELIAL LESION AND MALIGNANCY. CELLULAR CHANGES ASSOCIATED WITH INFLAMMATION ARE PRESENT. SPECIMEN REPROCESSED FOR INTERPRETATION USING GLACIAL ACETIC ACID (GAA). THIS SPECIMEN WAS RESCREENED PART OF OUR STUDENT DEAN PROGRAM. Specimen Adequacy [facility] ACCOUNT BILL Comment: Satisfactory for evaluation. Endocervical and/or squamous metaplastic cells (endocervical component) are present. Areas of partially obscuring blood are present. Clinician Provided ICD10 [facility] ACCOUNT BILL Comment: Z01.419 N93.8 Performed by [facility] ACCOUNT BILL Comment:Celia Coronel, [facility] Dwarf Tree Grower (ASCP) QC Reviewed by [facility] ACCOUNT BILL Comment:aDvida Burleson, [facility] Dwarf Tree Grower (ASCP) Comment . [facility] ACCOUNT BILL Note [facility] ACCOUNT BILL Comment: The Pap smear is a screening test designed to aid in the detection of premalignant and malignant conditions of the uterine cervix. It is not a diagnostic procedure and should not be used as the sole means of detecting cervical cancer. Both false-positive and false-negative reports do occur. . IGLBP CPT Code Automation [facility] ACCOUNT BILL Comment: This liquid based ThinPrep(R) pap test was screened with the use of an image guided system. Human papillomavirus Aptima Negative Negative [facility] ACCOUNT BILL Comment: This test detects fourteen high-risk HPV types (16/18/31/33/35/39/45/ 51/52/56/58/59/66/68) without differentiation. PART OF UTERINE CERVIX / Unknown 03/13/2017 5:59 PM CDT 03/14/2017 Narrative [facility] ACCOUNT BILL - 03/25/2017 3:15 PM CDT No. of containers..01 ThinPrep Vial Resulting Agency Comment [facility] [address] [place] [id number] us Lauren Simmons MD LAB - PATHOLOGY/CYTOLOGY OR DERABLES Final Result [facility] ACCOUNT BILL [address] [place] [address] from Last 3 Months or Most Recently Relevant to Health Maintenance Insurance Advance Directives * Full Code (Latest Code Status on File) Date Activated Date Inactivated Comments 04/25/2017 11:46 AM 04/26/2017 12:08 PM
--- OUTSIDE RECORDS SUMMARY | 2025-02-11 14:14 | XMS_ITS | Referral Summary ---
Author Organization [facility] Address [address] [place] [address] Care Team Providers Care Jewel Diameter Gauger Name Role Phone Eitan Nguyen MD Unavailable [phone] Emelina Wilde DO Primary Care Provider [phone] Allergies Active Allergy Reactions Criticality Noted Date Comments Butorphanol Other (See comments) Medium 01/02/2017 Extremely slow to wear off. Pt states knocked out for several hours. told her to never take again. Penicillins Rash Medium 06/06/2009 Medications multivitamin capsule Take 1 capsule by mouth every morning Active CALCIUM CITRATE ORAL Take 1 tablet by mouth 6 (six) times a day Active mecobalamin (B12 ACTIVE ORAL) Take 1 tablet by mouth every morning Active simvastatin (ZOCOR) 5 mg tablet 3 Active cetirizine (ZyrTEC) 10 mg capsule 3 Active ALPRAZolam (XANAX) 0.5 mg tablet TAKE 1 TABLET BY MOUTH DIRECTED BEFORE LEAVING HOME AND TAKE SECOND TAB UPON ARRIVAL AT OFFICE 2 tablet 3 Active Additional Information Patient not taking.Reported on 07/30/2023 fluticasone propionate (FLONASE) 50 mcg/actuation nasal spray 3 Active MAGNESIUM GLYCINATE ORAL 3 Active Active Problems Problem Noted Date Diagnosed Date Varicose veins of leg with pain, left 06/27/2023 Varicose veins of bilateral lower extremities wi th pain 11/26/2022 Assessment & Plan (04/10/2023 1:16 PM CDT): Patient is recovering well from her right EVLT with 25 stab phlebectomies. Incisions are healing well. States she is ready to be scheduled for her left leg to be done same procedure of EVLT and phlebectomies. Patient to be scheduled next month. Assessment & Plan (12/05/2022 4:10 PM CDT): Painful symptomatic varicose veins with reflux on most recent imaging. Will proceed with staged intervention right 1st than left. Patient to be scheduled for endovenous laser ablation of right great saphenous vein with phlebectomy, subsequently endovenous laser ablation of left great saphenous vein, left small saphenous vein with phlebectomy. Risks of the procedure communicated patient with full understanding. She wishes to proceed Assessment & Plan (11/26/2022 12:06 PM CDT): Longstanding history of painful bilateral lower extremity varicose veins more noticeable now with weight loss. She is been compliant with compression therapy. Will obtain lower extremity venous duplex with reflux study follow-up in 2 weeks. Pulsatile tinnitus of left ear 02/25/2022 Tinnitus 11/14/2021 Cervicalgia 03/29/2019 Status post laparoscopic hysterectomy 04/25/2017 Post-op pain 02/18/2017 History of sleeve gastrectomy 02/17/2017 Migraine 10/11/2016 Abnormal mammogram 06/06/2009 Anxiety state 11/04/2008 Depression 12/06/2005 Allergic rhinitis 04/01/2005 HTN (hypertension), benign 07/15/2001 Assessment & Plan (11/26/2022 12:06 PM CDT): Hypertension chronic and controlled. Continue current medical management. Immunizations Immunization Administration Dates Next Due Influenza, Quadrivalent, Spl it, Preservative Free, Intramuscular 05/30/2023,08/08/2022 Social History Tobacco Use Types Packs/Day Years Used Date Smoking Tobacco: Never Smokeless Tobacco: Never Tobacco Cessation:Counseling Given: Not Answered AUDIT-C Answer Date Recorded Q1: How often do you have a drink containing alcohol? Never 06/25/2022 Q2: How many drinks containi ng alcohol do you have on a typical day when you are drinking? Patient does not drink Q3: How often do you have si x or more drinks on one occasion? Never 06/25/2022 Comments No Sex and Gender Information Value Date Recorded Sex Assigned at Not on file Legal Sex Female 3:30 PM MANAGEMENT RETAIL INTERN Gender Identity Female 02/15/2022 10:58 AM CDT Sexual Orientation Not on file Last Filed Vital Signs Vital Sign Reading Time Taken Comments Blood Pressure 131/74 07/30/2023 8:34 AM MANAGEMENT RETAIL INTERN Pulse 67 07/30/2023 8:34 AM MANAGEMENT RETAIL INTERN Temperature 36.4 C (97.5 F) 06/25/2022 11:50 AM MANAGEMENT RETAIL INTERN Respiratory Rate 10 06/25/2022 1:20 PM MANAGEMENT RETAIL INTERN Oxygen Saturation 94% 06/25/2022 1:20 PM MANAGEMENT RETAIL INTERN Inhaled Oxygen Concentration - - Weight 86.2 kg (190 lb) 07/30/2023 8:34 AM MANAGEMENT RETAIL INTERN Height 167.6 cm (5' 6) 07/30/2023 8:34 AM MANAGEMENT RETAIL INTERN Body Mass Index 30.67 07/30/2023 8:34 AM MANAGEMENT RETAIL INTERN Plan of Treatment Not on file Medical Devices Implanted Type Area Banking Specialist Device Identifier Shelf Expiration Date Model / Serial / Lot [place] Craniomaxillofacial Hydroset Injectable Osteoconductive Cement 10cc Bone Calcium Latex Free [id number] - [id number] Implanted:Qty: 1 on 06/25/2022 by Oswald Roman MD at [facility] Left: Ear Giorgio Craniomaxillofacial [id number] 12/03/2023 [id number] / / [id number] Insurance [facility] [place] [address] [facility] Care Teams Jewel Diameter Gauger Relationship Specialty Start Date End Date Emelina Wilde DO [address] [facility] [place] [address] PCP - General Family Medicine 12/04/22 Eitan Nguyen MD [address] [place] [address] Surgeon Vascular Surgery 12/02/22
--- OUTSIDE RECORDS SUMMARY | 2025-02-11 14:14 | XMS_ITS | Clinical Summary ---
Author Organization [facility] Address [address] [place] [address] Care Team Providers Care Sample Clerk Name Role Phone Leticia Gomez MD Primary Care Provider [phone] Allergies Active Allergy Reactions Criticality Noted Date Comments Penicillins Rash Low 03/12/2019 Medications metoprolol succinate ER 100 MG 24 hr tablet Take 100 mg by mouth daily. Active fluticasone propionate 50 MCG/ACT nasal spray 1 spray by Nasal route daily. Active naproxen 500 MG tablet Take 1 tablet (500 mg total) by mouth 2 (two) times daily as needed (Pain). 20 tablet 03/12/2019 Active Active Problems Problem Noted Date Diagnosed Date Cervicalgia 03/29/2019 Social History Tobacco Use Types Packs/Day Years Used Date Smoking Tobacco: Never Smokeless Tobacco: Never Alcohol Use Standard Drinks/Week Comments No 0 (1 standard drink = 0.6 oz pur e alcohol) AUDIT-C Answer Date Recorded Frequency of Alcohol Consumption Never 03/12/2019 Average Number of Drinks Not on file 019 Frequency of Binge Drinking Not on file 02/13 Comments No Sex and Gender Information Value Date Recorded Sex Assigned at Not on file Legal Sex Female 4:17 PM CDT Gender Identity Not on file Sexual Orientation Not on file Last Filed Vital Signs Vital Sign Reading Time Taken Comments Blood Pressure 115/59 03/12/2019 7:56 PM CDT Pulse 58 03/12/2019 7:56 PM CDT Temperature 36.8 C (98.3 F) 03/12/2019 4:17 PM CDT Respiratory Rate 18 03/12/2019 7:56 PM CDT Oxygen Saturation 97% 03/12/2019 7:56 PM CDT Inhaled Oxygen Concentration - - Weight 97.5 kg (215 lb) 03/12/2019 4:17 PM CDT Height 167.6 cm (5' 6) 03/12/2019 4:17 PM CDT Body Mass Index 34.7 03/12/2019 4:17 PM CDT Plan of Treatment Health Maintenance Due Date Last Done Comments Colorectal Cancer Screening Colonoscopy (10 Years) 1968 Annual Physical 1971 Hepatitis C 1986 DTaP, Tdap and Td Vaccines ( 1 - Tdap) 1987 Hepatitis B Vaccines (1 of 3 - 19+ 3-dose series) 1987 Mammogram Screening 2008 Pneumococcal Vaccine: 50+ Ye ars (1 of 1 - PCV) 2018 Zoster Vaccines (1 of 2) 2018 COVID-19 Vaccine (1 - 2023-2 5 season) 2024 Meningococcal B Vaccine Aged Out No l onger eligible based on patient's age to complete this topic Meningococcal Vaccine Aged Out No kimani jorge l eligible based on patient's age to complete this topic RSV Immunizations Under 20 Months Aged Out No longer eligible based on patient's age to complete this topic Insurance [employer] Care Teams Sample Clerk Relationship Specialty Start Date End Date Leticia Goemz MD [address] [place] [address] PCP - General INTERNAL MEDICINE 03/12/19
--- OUTSIDE RECORDS SUMMARY | 2025-02-11 14:14 | XMS_ITS | Clinical Summary ---
Author Organization [facility] Address [address] [place] [address] Care Team Providers Care Job Developer For Deaf Adults Name Role Phone Eitan Nguyen MD Unavailable [phone] Emelina Wilde DO Primary Care Provider [phone] Allergies Active Allergy Reactions Criticality Noted Date [...] Quadrivalent, Spl it, Preservative Free, Intramuscular 05/30/2023,08/08/2022 Surgical History Surgery Date Site/Laterality Comments HYSTERECTOMY 04/13/2017 - 05/13/2017 TONSILLECTOMY AND ADENOIDECTOMY 07/14/1970 - 07/13/1971 SECTION 07/14/1997 - 07/13/1998 ANGIO SELECTIVE INTERNAL CAROTID LEFT 06/12/2022 Lef t DILATION AND CURETTAGE OF UTERUS 7 - 04/12/2017 ESOPHAGOGASTRODUODENOSCOPY 12/12/2016 - 01/10/2017 GASTRECTOMY 02/11/2017 - 03/13/2017 VARICOSE VEIN SURGERY 06/27/2023 Left LT GSV SSV EVLT w/ phlebs x26 Medical History Medical History Date Comments Hypertension Sinusitis Family History Medical History Relation Name Comments Anxiety disorder Brother Cancer Brother Cancer Father PTSD Father Depression Maternal Grandfather Heart attack Maternal Grandfather Heart disease Maternal Grandfather Cancer Maternal Grandmother COPD Mother Cancer Mother Diabetes Mother Cancer Paternal Grandmother Anesthesia problems Neg Hx Relation Name Status Comments Brother Father Maternal Grandfather Maternal Grandmother Mother Paternal Grandmother Social History Tobacco Use Types [...] on file Legal Sex Female 3:30 PM SHAKE TABLE OPERATOR Gender Identity Female 02/15/2022 10:58 AM CDT Sexual Orientation Not on file Obstetrics History Last Filed Vital Signs Vital Sign Reading Time Taken Comments Blood Pressure 131/74 07/30/2023 8:34 AM SHAKE TABLE OPERATOR Pulse 67 07/30/2023 8:34 AM SHAKE TABLE OPERATOR Temperature 36.4 C (97.5 F) 06/25/2022 11:50 AM SHAKE TABLE OPERATOR Respiratory Rate 10 06/25/2022 1:20 PM SHAKE TABLE OPERATOR Oxygen Saturation 94% 06/25/2022 1:20 PM SHAKE TABLE OPERATOR Inhaled Oxygen Concentration - - Weight 86.2 kg (190 lb) 07/30/2023 8:34 AM SHAKE TABLE OPERATOR Height 167.6 cm (5' 6) 07/30/2023 8:34 AM SHAKE TABLE OPERATOR Body Mass Index 30.67 07/30/2023 8:34 AM SHAKE TABLE OPERATOR Plan of Treatment Health Maintenance Due Date Last Done Comments Colon Cancer Screening-Colonoscopy 1968 Depression Screening 1968 Hepatitis C Screening 1968 DTaP/Tdap/Td Vaccine (1 - Tdap) 1979 Hepatitis B Screening 1986 Regular Well Visit/Exam 18-64 1986 Zoster Vaccine (1 of 2) 2018 Covid-19 Vaccine (3 - season) 2024 06/10/2021, 09/19/2020 Breast Cancer Screening-Mammogram 05/12/2024 05/12/2023, 05/12/2023, 06/01/2022, Additional history exists Influenza Vaccine (#1) 2025 05/30/2023, 2022 Pneumococcal vaccine <65 Aged Out No longer eligible based on patient's age to complete this topic Medical Devices Implanted Type Area Finishing Range Feeder Device Identifier Shelf Expiration Date Model / Serial / Lot Giorgio Craniomaxillofacial Hydroset Injectable Osteoconductive Cement 10cc Bone Calcium Latex Free [id number] - [id number] Implanted:Qty: 1 on 06/25/2022 by Oswald Roman MD at [facility] Left: Ear [place] Craniomaxillofacial [id number] 12/03/2023 [id number] / / [id number] Insurance [facility] Care Teams Job Developer For Deaf Adults Relationship Specialty Start Date End Date Emelina Wilde DO [address] [place] [address] PCP - General Family Medicine 12/04/22 Eitan Nguyen MD [address] [place] [address] Surgeon Vascular Surgery 12/02/22
[2025-02-11 17:56] LABS: Hematocrit 42.3 % (37.0-47.0); Hemoglobin 13.9 g/dL (12.0-15.0); Mean Corpuscular HGB Conc 32.9 g/dl (32-36); Mean Corpuscular Hemoglobin 29.3 pg (26-34); Mean Corpuscular Volume 89.1 fl (80-100); Platelet Count Result 266 k/mm3 (150-375); Red Blood Count 4.75 M/mm3 (4.2-5.4); White Blood Count 9.0 K/mm3 (4.5-10.0)
[2025-02-11 18:07] LABS: Alanine Aminotransferase 22 U/L (6-35); Albumin Level 3.9 g/dL (3.5-5.1); Alkaline Phosphatase 58 U/L (38-126); Anion Gap 5 mmol/L (4-12); Aspartate Amino Transferase 27 U/L (14-36); Bilirubin,Total 0.5 mg/dL (0.2-1.3); Blood Urea Nitrogen 15 mg/dL (7-17); Calcium 9.4 mg/dL (8.4-10.2); Carbon Dioxide 24 mmol/L (22-30); Chloride 109 mmol/L (98-107); Cholesterol 167 mg/dL (0-200); Estimated Glomerular Filt Rate > 60; Glucose 79 mg/dL (65-110); HDL Direct 39 mg/dL; Potassium 4.0 mmol/L (3.4-5.0); Sodium 138 mmol/L (137-145); Total Protein 6.5 g/dL (6.3-8.2); Triglycerides 85 mg/dL (<150)
[2025-02-11 18:37] LABS: Thyroid Stimulating Hormone 0.843 uIU/mL (0.465-4.680)
== END 2025-02-11 14:12 | disposition home or self-care (01) ==
LOC: ANHGOSHLAB 14:12
PROVIDERS: PCP Family Medicine; Visit Provider Family Medicine
DX: E78.5 Hyperlipidemia, unspecified (principal); E66.9 Obesity, unspecified; F41.8 Other specified anxiety disorders; Z79.899 Other long term (current) drug therapy
CPT/HCPCS: 36415; 80053; 80061; 84443; 85027